=== PATIENT | female | born 1960 | race Two or more races ===

== ENCOUNTER 2020-10-22 08:43 | Outpatient (CLI) | payer OTHER ==
[~2020-10-22 08:43] MED LIST: ADULT ASPIRIN81 MG PO; AMOXICILLIN500 M1 PO; [UNRECOGNIZED DRUG - OTHER]
== END 2020-10-22 08:56 | disposition home or self-care (01) ==
LOC: MAMO-SONO 08:43
PROVIDERS: ATTEND Specialist
DX: N60.11 Diffuse cystic mastopathy of right breast (principal); N60.12 Diffuse cystic mastopathy of left breast; L76.32 Postprocedural hematoma of skin and subcutaneous tissue following other procedure

== ENCOUNTER 2025-01-14 12:04 | Outpatient (CLI) | payer OTHER | END 2025-01-14 12:08 | disposition home or self-care (01) | LOC: EKG 12:04 | PROVIDERS: ATTEND Internal Medicine Cardiovascular Disease | DX: I10 Essential (primary) hypertension (principal) ==